=== PATIENT | male | born 1960 | race Caucasian/White ===

== ENCOUNTER 2024-08-08 12:30 | Emergency (ER) | payer MEDICARE ==
[~2024-08-08] VITALS: Ht 160 cm; Wt 68.0 kg
[2024-08-08 12:52] VITALS: O2SAT 98
[2024-08-08] MEDS ORDERED: CEPH500T MT (13:36)
[2024-08-08] MEDS ORDERED: HYDR453.3 TP (13:36)
[2024-08-08] MEDS ORDERED: SULF1TAB48 MT (13:36)
[2024-08-08 13:47] VITALS: BP 135/60; PULSE 83; RESP 14; TEMP 36.4; O2SAT 97
== END 2024-08-08 13:49 | disposition home or self-care (01) ==
LOC: ER 13:14
DX: L03.113 Cellulitis of right upper limb (principal)
CPT/HCPCS: 99283